=== PATIENT | female | born 1990 | race African-American/Black ===

== ENCOUNTER 2018-11-28 04:37 | Inpatient (IN) | payer BC ==
[2018-11-28] MEDS ORDERED: Sodium Chloride 0.9% 10 ML Syringe FLUSH PRN (06:49)
[2018-11-28] MEDS ORDERED: Nalbuphine 10 MG/1 ML Vial IVPUSH PRN (06:49)
[2018-11-28] MEDS ORDERED: Lidocaine 1% 50 ML MDV INJECT ONE (06:49)
[2018-11-28] MEDS ORDERED: Oxytocin/Lactated Ringers 10 UNIT/1,000 ML BAG IV SCH ×3 (07:00→16:01)
--- NOTE | 2018-11-28 07:42 | PCM.LDHP ---
L&D History of Present Illness - General Date of Service: 11/28/18 Admit Problem/Dx: Patient Status Order with Admit Dx/Problem 11/28/18 04:50 Patient Status [ADT] Routine 11/28/18 06:50 Patient Status [ADT] Routine Admission Diagnosis/Problem Admission Diagnosis/Problem Source of Information: Patient, Significant Other History Limitations: Reports: Language Barrier (Patient speaks some Citizen Of [place]) - History of Present Illness Introduction:: Tricia Murray is a 28-year-old at 39 weeks 4 days (DAVINA 12/01/2018) by LMP consistent with 20 week ultrasound who presents for evaluation of contractions. She reports that she started to have contractions that started spontaneously at approximately 1 AM this morning. Over the next 3-4 hours a became closer and closer together and were happening about every 1-2 minutes and were much more painful. She reports that she had a gush of pink-colored fluid initially with her contractions. She reports that she has had a continued small amounts of leaking of fluid since arriving to labor and delivery for evaluation. She reports good movement. Timing/Duration: Reports: sudden onset (1 AM), getting worse Location, : Reports: Abdomen, Lower back, Pelvic Quality: Reports: Pressure, Throbbing Severity: Severe Improves with: Reports: None Worsens with: Reports: None Associated Symptoms: Reports: vaginal bleeding, vaginal fluid, mild amount. Denies: vaginal discharge Present Illness Comments:: Tricia Murray is a 28-year-old at 39 weeks 4 days (DAVINA 12/01/2018) by LMP consistent with 20 week ultrasound who presents in active labor. She has had routine care with Dr. Shannon since 12 weeks gestational age. She has not had any significant complications during this . She received TDaP vaccine during the . labs Blood type: O+ Antibody screen: Negative Rubella status: Immune Hepatitis B surface antigen: Negative RPR: Negative HIV: Negative Gonorrhea: Negative Chlamydia: Negative Hemoglobinopathy testing: Negative for hemoglobinopathies Anatomy scan: Normal anatomy anterior placenta One hour glucose tolerance test: 93 Second trimester hemoglobin: 10.5 on 09/03/2018 Platelets: 141 on 09/03/2018 GBS status: Negative This complicated by: * ancestry with negative hemoglobinopathy testing * Language barrier with limited Citizen [place] language skills and primary language is Twi * Mild anemia with hemoglobin of 10.5 on second trimester testing - Related Data Allergies/Adverse Reactions: Allergies Allergy/AdvReac Type Severity Reaction Status Date / Time No Known Allergies Allergy Verified 11/28/18 04:49 Past Medical History - Past Health History Medical/Surgical History: Denies Medical/Surgical History Social & Family History - Tobacco Use Smoking Status *Q: Never Smoker Tobacco Use Within Last Twelve Months: No - Tobacco Core Measures Tobacco Use/Smoking Within Last 30 Days: No Smokeless Tobacco Use in Last 30 Days: No - Alcohol Use Alcohol Use History: No - Recreational Drug Use Recreational Drug Use: No Drug Use in Last 12 Months: No - Living Situation & Occupation Living situation: Reports: , with Significant Other H&P Review of Systems - Review of Systems: Review Of Systems: See Below General: Denies: Fever, Chills, Malaise, Weakness, Fatigue HEENT: Denies: Post Nasal Drip, Sinus Congestion, Sore Throat, Visual Changes Pulmonary: Denies: Shortness of Breath, Wheezing, Pleuritic Chest Pain, Cough Cardiovascular: Denies: Chest Pain, Palpitations, Dyspnea on Exertion Gastrointestinal: Denies: Abdominal Pain, Constipation, Diarrhea, Nausea, Vomiting Genitourinary: Denies: Dysuria, Frequency, Burning, Pain, Urgency Musculoskeletal: Reports: Back Pain (and hip pain) Skin: Denies: Rash, Lesions Psychiatric: Denies: Depression, Anxiety Neurological: Denies: Headache Hematologic/Lymphatic: Reports: Anemia L&D Exam - Exam Exam: See Below - Vital Signs Vital Signs: Last Vital Signs Temp 36.7 C 11/28/18 05:10 Pulse 91 11/28/18 05:10 Resp 15 11/28/18 05:10 BP 115/86 11/28/18 05:10 Pulse Ox Weight: 62.596 kg - OB Specific Contraction Frequency (min): 2-4 Contraction Intensity: Strong Movement: Active Heart Tones: Present Heart Tones per Min: 120 (+15 x 15 accelerations, occasional early decelerations) Heart Rate (FHR) Variability: Moderate (6-25 bmp) Presentation: Vertex Estimated Weight: 6.5 pounds by Dipak's - Kumar Score Kumar Score Cervix Position: Midposition Kumar Score Consistency: Soft Kumar Score Effacement: >80% (100%) Kumar Score Dilation: 3-4 cm Kumar Score 's Station: -1 ,0 (-1) Kumar Score Total: 10 - Exam General: Alert, Oriented HEENT: Conjunctiva Clear, EOMI Neck: Supple, Trachea Midline Lungs: Clear to Auscultation, Normal Respiratory Effort Cardiovascular: Regular Rate, Regular Rhythm GI/Abdominal Exam: Soft, Non-Tender, No Distention. No: Guarding, Rigid, Rebound Genitourinary: Normal external exam Back Exam: Normal Inspection, Full Range of Motion Skin: Warm, Dry, Intact Psychiatric: Alert, Normal Affect, Normal Mood - Patient Data Lab Results Last 24 hrs: Laboratory Results - last 24 hr 11/28/18 11/28/18 Range/Units 05:09 07:00 WBC 8.99 (3.98-10.04) K/mm3 RBC 5.10 (3.98-5.22) M/mm3 Hgb 14.4 (11.2-15.7) gm/L Hct 42.1 (34.1-44.9) % MCV 82.5 (79.4-94.8) fl MCH 28.2 (25.6-32.2) pg MCHC 34.2 (32.2-35.5) g/dl RDW Std Deviation 45.5 (36.4-46.3) fL Plt Count 162 L (182-369) K/mm3 MPV 11.2 (9.4-12.3) fl Neut % (Auto) 75.4 H (34.0-71.1) % Lymph % (Auto) 16.6 L (19.3-51.7) % [place] % (Auto) 7.5 (4.7-12.5) % Eos % (Auto) 0.1 L (0.7-5.8) Baso % (Auto) 0.1 (0.1-1.2) % Neut # (Auto) 6.78 H (1.56-6.13) K/mm3 Lymph # (Auto) 1.49 (1.18-3.74) K/mm3 [place] # (Auto) 0.67 H (0.24-0.36) K/mm3 Eos # (Auto) 0.01 L (0.04-0.36) K/mm3 Baso # (Auto) 0.01 (0.01-0.08) K/mm3 Membrane Rupture Negative Result Diagrams: 11/28/18 07:00 - Problem List (1) 39 weeks gestation of SNOMED Code(s): 54522559 ICD Code: Z3A.39 - 39 WEEKS GESTATION OF Status: Acute Current Visit: Yes (2) ancestry requiring population-specific genetic screening SNOMED Code(s): 35635169, 970220770, 651958821 ICD Code: Z13.79 - ENCNTR FOR OTH SCREENING FOR GENETIC AND CHROMSOML ANOMALIES Status: Acute Current Visit: Yes (3) Language barrier SNOMED Code(s): 042403702, 429500313 ICD Code: Z78.9 - OTHER SPECIFIED HEALTH STATUS Status: Acute Current Visit: Yes Problem List Initiated/Reviewed/Updated: Yes Orders Last 24hrs: Active Orders 24 hr Category Date Time Status Patient Status [ADT] Routine ADT 11/28/18 06:50 Active Activity as Tolerated [RC] PFP Care 11/28/18 06:50 Active Communication Order [RC] ASDIRECTED Care 11/28/18 06:50 Active Heart Tones [RC] ASDIRECTED Care 11/28/18 06:50 Active Non Stress Test [RC] PER UNIT ROUTINE Care 11/28/18 04:50 Active Non Stress Test [RC] PER UNIT ROUTINE Care 11/28/18 06:50 Active Notify Provider [RC] PFP Care 11/28/18 06:50 Active Notify Provider [RC] PRN Care 11/28/18 06:50 Active Peripheral IV Care [RC] . DIRECTED Care 11/28/18 06:50 Active Vital Signs [RC] PER UNIT ROUTINE Care 11/28/18 04:50 Active Vital Signs [RC] PER UNIT ROUTINE Care 11/28/18 06:50 Active Regular Diet [DIET] Diet 11/28/18 Breakfast Active RAPID PLASMA REAGIN,RPR [CHEM] Routine Lab 11/28/18 07:00 Received Lactated Ringers [Ringers, Lactated] 1,000 ml Med 11/28/18 07:00 Active IV ASDIRECTED Nalbuphine [Nubain] Med 11/28/18 06:49 Active 10 mg IVPUSH Q2H PRN Oxytocin/Lactated Ringers [Pitocin in LR 10 Units/1,000 Med 11/28/18 07:00 Active ML] 10 unit in 1,000 ml IV .CONTINUOUS Sodium Chloride 0.9% [Saline Flush] Med 11/28/18 06:49 Active 10 ml FLUSH ASDIRECTED PRN Electronic Heart Tones Ext w TOCO [WOMSER] Oth 11/28/18 06:50 Ordered Routine Electronic Heart Tones Internal [WOMSER] Per Unit Ot 11/28/18 06:50 Ordered Routine Peripheral IV Insertion Adult [OM.PC] Routine Ot 11/28/18 06:50 Ordered Resuscitation Status Routine Resus Stat 11/28/18 04:49 Ordered Medication Orders Lactated Ringer's (Ringers, Lactated) 1,000 mls @ 100 mls/hr IV ASDIRECTED GRETEL Oxytocin/Lactated Ringer's (Pitocin In Lr 10 Units/1,000 Ml) 10 unit in 1,000 mls @ 500 mls/hr IV .CONTINUOUS GRETEL; Protocol Nalbuphine HCl (Nubain) 10 mg IVPUSH Q2H PRN PRN Reason: Pain Sodium Chloride (Saline Flush) 10 ml FLUSH ASDIRECTED PRN PRN Reason: Keep Vein Open Assessment/Plan Comment:: Refer to observation for spontaneous labor with cervical change Continuous monitoring Place IV and have Lactated Ringer's at 125 ml/hr May have small amounts of regular diet Activity as tolerated May have epidural as desired Plans to breast-feed after delivery Anticipate vaginal delivery unless otherwise indicated Larry Panda M.D. 7:52 AM 11/28/2018
[2018-11-28] MEDS ORDERED: Lidocaine 1% 50 ML MDV ONE (10:20)
[2018-11-28] MEDS: Lactated Ringers 1,000 ML IV SCH ×2 (10:33→12:26)
--- NOTE | 2018-11-28 15:52 | PCM.DEL ---
L & D Note - General Info Date of Service: 11/28/18 Mother's Due Date: 12/01/18 - Delivery Note Labor: Spontaneous, Augmented by Oxytocin Delivery Outcome: Livebirth Infant Delivery Method: Spontaneous Vaginal Delivery-Single Presentation: Right Occiput Anterior (KERRY) Nuchal Cord: Present (not reduced prior to delivery) Prep: Povidone-Iodine (Betadine Anesthesia Type: Local Anesthetic: Lidocaine (Xylocaine) 1% Plain Local Anesthetic Volume: Other (10 mL) Amniotic Fluid Description: Meconium Stained Episiotomy Type: None Laceration: 2nd Degree, Perineal (left) Suture type: Vicryl Suture size: 3-0 Placenta: Intact, Spontaneous Cord: 3 Vessels Estimated Blood Loss: 350 Resuscitation Needed: Yes : Suctioned, Bulb Syringe, Cathether, Stimulated, Warmed, [place] Used, Warmer Used Provider: Larry Panda Score 1 min: 5 Score 5 min: 8 Second Stage Interventions: Reports: Pushing Effectively, Pushing, Feet in Foot Rests, Pushing, Pulls Own Legs Back, Pushing, Squat Bar Pulling on Device Delivery Comments (Free Text/Narrative):: Stage I: Tricia Murray was admitted for spontaneous labor. On admission her cervix was dilated to 1 cm and changed to 3 cm over the course of an hour. She was GBS negative. She had artificial rupture membranes with return of moderate meconium fluid. She progressed to complete and pushing. She had spacing out of her contractions during pushing and was started on Pitocin for augmentation of labor. Stage II: On 11/28/2018 she had a normal vaginal delivery of a live male at 1458. Apgars of 5 & 8. Weight of 2980 g (6 lbs 9.1 oz). Length of 20.5 inches. There was a single nuchal cord that was not reduced prior to delivery. was delivered in KERRY position. The cord was doubly clamped and cut by myself. Infant was taken to the warmer for resuscitation after delivery. Stage III: She had a spontaneous delivery of an intact placenta in Steffany presentation. Three vessel cord. She was given pitocin and fundal massage. She had a second degree left perineal laceration that was repaired with 3-0 Vicryl. Mom and baby were stable to recovery. EBL of 350 mL. Larry Panda MD 3:47 PM 11/28/2018 - General Info Date of Service: 11/28/18 - Patient Data Vitals - Most Recent: Last Vital Signs Temp 36.7 C 11/28/18 05:10 Pulse 91 11/28/18 05:10 Resp 15 11/28/18 05:10 BP 115/86 11/28/18 05:10 Pulse Ox Weight - Most Recent: 62.596 kg Lab Results Last 24 Hours: Laboratory Results - last 24 hr 11/28/18 11/28/18 Range/Units 05:09 07:00 WBC 8.99 (3.98-10.04) K/mm3 RBC 5.10 (3.98-5.22) M/mm3 Hgb 14.4 (11.2-15.7) gm/L Hct 42.1 (34.1-44.9) % MCV 82.5 (79.4-94.8) fl MCH 28.2 (25.6-32.2) pg MCHC 34.2 (32.2-35.5) g/dl RDW Std Deviation 45.5 (36.4-46.3) fL Plt Count 162 L (182-369) K/mm3 MPV 11.2 (9.4-12.3) fl Neut % (Auto) 75.4 H (34.0-71.1) % Lymph % (Auto) 16.6 L (19.3-51.7) % [place] % (Auto) 7.5 (4.7-12.5) % Eos % (Auto) 0.1 L (0.7-5.8) Baso % (Auto) 0.1 (0.1-1.2) % Neut # (Auto) 6.78 H (1.56-6.13) K/mm3 Lymph # (Auto) 1.49 (1.18-3.74) K/mm3 [place] # (Auto) 0.67 H (0.24-0.36) K/mm3 Eos # (Auto) 0.01 L (0.04-0.36) K/mm3 Baso # (Auto) 0.01 (0.01-0.08) K/mm3 Membrane Rupture Negative Med Orders - Current: Current Medications Lactated Ringer's (Ringers, Lactated) 1,000 mls @ 100 mls/hr IV ASDIRECTED GRETEL Last Admin: 11/28/18 12:26 Dose: 100 mls/hr Oxytocin/Lactated Ringer's (Pitocin In Lr 10 Units/1,000 Ml) 10 unit in 1,000 mls @ 500 mls/hr IV .CONTINUOUS GRETEL; Protocol Oxytocin/Lactated Ringer's (Pitocin In Lr 10 Units/1,000 Ml) 10 unit in 1,000 mls @ 12 mls/hr IV TITRATE GRETEL; Protocol Last Titration: 11/28/18 14:26 Dose: 4 munits/min, 24 mls/hr Nalbuphine HCl (Nubain) 10 mg IVPUSH Q2H PRN PRN Reason: Pain Sodium Chloride (Saline Flush) 10 ml FLUSH ASDIRECTED PRN PRN Reason: Keep Vein Open Discontinued Medications Lidocaine HCl (Xylocaine 1%) 50 ml INJECT ONETIME ONE Stop: 11/28/18 06:50 Last Admin: 11/28/18 15:19 Dose: 50 ml Lidocaine HCl (Xylocaine 1%) Confirm Administered Dose 50 ml .ROUTE .STK-MED ONE Stop: 11/28/18 10:21 - Problem List & Annotations (1) 39 weeks gestation of SNOMED Code(s): 27771348 Code(s): Z3A.39 - 39 WEEKS GESTATION OF Status: Acute Current Visit: Yes (2) ancestry requiring population-specific genetic screening SNOMED Code(s): 83026217, 496826692, 898758181 Code(s): Z13.79 - ENCNTR FOR OTH SCREENING FOR GENETIC AND CHROMSOML ANOMALIES Status: Acute Current Visit: Yes (3) Language barrier SNOMED Code(s): 157637723, 012542222 Code(s): Z78.9 - OTHER SPECIFIED HEALTH STATUS Status: Acute Current Visit: Yes (4) Thick meconium stained amniotic fluid SNOMED Code(s): 554144959 Code(s): P96.83 - MECONIUM STAINING Status: Acute Current Visit: Yes (5) Meconium stained amniotic fluid, delivered, current hospitalization SNOMED Code(s): 918439317, 169907891 Code(s): O77.0 - LABOR AND DELIVERY COMPLICATED BY MECONIUM IN AMNIOTIC FLUID Status: Acute Current Visit: Yes (6) Vaginal delivery SNOMED Code(s): 685422070 Code(s): O80 - ENCOUNTER FOR FULL-TERM UNCOMPLICATED DELIVERY Status: Acute Current Visit: Yes (7) Second degree perineal laceration during delivery SNOMED Code(s): 5032096 Code(s): O70.1 - SECOND DEGREE PERINEAL LACERATION DURING DELIVERY Status: Acute Current Visit: Yes - Problem List Review Problem List Initiated/Reviewed/Updated: Yes - My Orders Last 24 Hours: My Active Orders 11/28/18 04:49 Resuscitation Status Routine 11/28/18 04:50 Non Stress Test [RC] PER UNIT ROUTINE Vital Signs [RC] PER UNIT ROUTINE 11/28/18 06:49 Nalbuphine [Nubain] 10 mg IVPUSH Q2H PRN Sodium Chloride 0.9% [Saline Flush] 10 ml FLUSH ASDIRECTED PRN 11/28/18 06:50 Patient Status [ADT] Routine Activity as Tolerated [RC] PFP Communication Order [RC] ASDIRECTED Heart Tones [RC] ASDIRECTED Non Stress Test [RC] PER UNIT ROUTINE Notify Provider [RC] PFP Notify Provider [RC] PRN Peripheral IV Care [RC] . DIRECTED Vital Signs [RC] PER UNIT ROUTINE Electronic Heart Tones Ext w TOCO [WOMSER] Routine Electronic Heart Tones Internal [WOMSER] Per Unit Routine Peripheral IV Insertion Adult [OM.PC] Routine 11/28/18 07:00 RAPID PLASMA REAGIN,RPR [CHEM] Routine Lactated Ringers [Ringers, Lactated] 1,000 ml IV ASDIRECTED Oxytocin/Lactated Ringers [Pitocin in LR 10 Units/1,000 ML] 10 unit in 1,000 ml IV .CONTINUOUS 11/28/18 13:30 Oxytocin/Lactated Ringers [Pitocin in LR 10 Units/1,000 ML] 10 unit in 1,000 ml IV TITRATE 11/28/18 15:39 Patient Status Manage Transfer [TRANSFER] Routine 11/28/18 Breakfast Regular Diet [DIET] - Plan Plan:: Admit to inpatient following normal spontaneous vaginal delivery Continue Pitocin per unit protocol following delivery of placenta and lactated Ringer's until tolerating regular diet Regular diet Vitals per unit routine Ibuprofen and Tylenol for pain control Assist with breast-feeding as needed Continue to monitor lochia Anticipate discharge home on day #1 or #2 depending on status Larry Panda MD 3:47 PM 11/28/2018
[2018-11-28] MEDS ORDERED: Lanolin 100% Cream 7 GM Tube TOP PRN (16:01)
[2018-11-28] MEDS ORDERED: Benzocaine/Menthol 20%-0.5% Spray 56 GM Canister TOP PRN (16:01)
[2018-11-28] MEDS ORDERED: Witch Hazel Medicated Pads 40/Jar TOP PRN (16:01)
[2018-11-28] MEDS ORDERED: Acetaminophen 325 MG Tab PO PRN (16:01)
[2018-11-28] MEDS ORDERED: Hydrocortisone Acetate 25 MG Supp RECTAL PRN (16:01)
[2018-11-28] MEDS ORDERED: Docusate Sodium 100 MG Cap PO PRN (16:01)
[2018-11-28] MEDS: Ibuprofen 600 MG Tab PO PRN (20:27)
[2018-11-29] MEDS: Ibuprofen 600 MG Tab PO PRN ×2 (08:49→22:22)
[2018-11-29] MEDS: Prenatal Multivitamin with Calcium/Folic Acid/Iron Tab PO SCH (08:49)
--- NOTE | 2018-11-29 10:09 | PCM.SN ---
- Free Text/Narrative Note: Post Progress Note PPD # 1 Subjective: Doing well overall. Ambulating without difficulty. Lochia minimal and reports that she has had a change a pad 3 times since delivery. Voiding without difficulty. Tolerating regular diet without nausea or vomiting. Pain controlled with oral medications. Reports that she is having some perineal and abdominal pain. Reports that the oral medications are helping for this. Pumping breastmilk with bottle supplementation for feeding infant with minimal difficulty. Objective: Vitals: Vital Signs - 24 hr 11/28/18 11/29/18 11/29/18 20:21 02:54 07:31 Temperature 36.8 C 37.0 C 37.4 C Pulse, 85 71 78 Peripheral Respiratory 17 16 14 Rate Blood Pressure 101/63 94/56 L 103/65 O2 Sat by Pulse 99 100 99 Oximetry Physical Exam General: Alert and oriented, no acute distress Lungs: Clear to auscultation bilaterally Heart: Regular rate and rhythm Abdomen: Soft, minimal appropriate tenderness, non-distended, fundus midline, nontender, and at the umbilicus Extremities: Trace edema in bilateral lower extremities to mid shins ASSESSMENT: 28-year-old female s/p normal vaginal delivery with thick meconium- stained fluid PPD #1, complicated by ancestry with negative hemoglobinopathy testing, limited barrier and mild anemia PLAN: Doing well Pumping breast milk with bottle supplementation with minimal difficulty. Assist as needed Lochia minimal. Continue to monitor for appropriate lochia. Continue routine care Anticipate discharge home tomorrow Larry Panda MD 10:08 AM 11/29/2018
[2018-11-30] MEDS ORDERED: Magnesium Hydroxide 400 MG/5 ML Susp 30 ML Cup PO ONE (09:15)
--- NOTE | 2018-11-30 09:17 | PCM.SN ---
- Free Text/Narrative Note: Post Progress Note PPD # 2 Subjective: Doing well overall. Ambulating without difficulty. Lochia decreasing since yesterday and is minimal at this time. Voiding without difficulty. Tolerating regular diet without nausea or vomiting. Reports that she does not have much of an appetite at this time. Pain controlled with oral medications. Reports that the oral medications are helping for this. Pumping breastmilk with bottle supplementation for feeding infant with minimal difficulty. Objective: Vitals: Vital Signs - 24 hr 11/29/18 11/29/18 11/30/18 16:47 20:08 02:40 Temperature 36.9 C 36.8 C Pulse, 88 80 76 Peripheral Respiratory 16 16 16 Rate Blood Pressure 102/70 101/75 109/73 O2 Sat by Pulse 99 100 99 Oximetry 11/30/18 07:56 Temperature 36.9 C Pulse, Peripheral Respiratory 14 Rate Blood Pressure 127/66 O2 Sat by Pulse Oximetry Physical Exam General: Alert and oriented, no acute distress Lungs: Clear to auscultation bilaterally Heart: Regular rate and rhythm Abdomen: Soft, minimal appropriate tenderness, non-distended, fundus midline, nontender, and at the umbilicus Extremities: No edema ASSESSMENT: 28-year-old female s/p normal vaginal delivery with thick meconium- stained fluid PPD #2, complicated by ancestry with negative hemoglobinopathy testing, limited barrier and mild anemia PLAN: Doing well Pumping breast milk with bottle supplementation with minimal difficulty. Assist as needed Lochia minimal. Continue to monitor for appropriate lochia. Continue routine care Discharge home today Larry Panda MD 9:08 AM 11/30/2018
--- NOTE | 2018-11-30 09:22 | PCM.DCSUM1 ---
Discharge Summary - Hospital Course Free Text/Narrative:: Date of Service: 11/28/18 Mother's Due Date: 12/01/18 - Delivery Note Labor: Spontaneous, Augmented by Oxytocin Delivery Outcome: Livebirth Infant Delivery Method: Spontaneous Vaginal Delivery-Single Presentation: Right Occiput Anterior (KERRY) Nuchal Cord: Present (not reduced prior to delivery) Prep: Povidone-Iodine (Betadine Anesthesia Type: Local Anesthetic: Lidocaine (Xylocaine) 1% Plain Local Anesthetic Volume: Other (10 mL) Amniotic Fluid Description: Meconium Stained Episiotomy Type: None Laceration: 2nd Degree, Perineal (left) Suture type: Vicryl Suture size: 3-0 Placenta: Intact, Spontaneous Cord: 3 Vessels Estimated Blood Loss: 350 Resuscitation Needed: Yes [place]: Suctioned, Bulb Syringe, Cathether, Stimulated, Warmed, [place] Used, Warmer Used Provider: Larry Panda Score 1 min: 5 Score 5 min: 8 Second Stage Interventions: Reports: Pushing Effectively, Pushing, Feet in Foot Rests, Pushing, Pulls Own Legs Back, Pushing, Squat Bar Pulling on Device Delivery Comments (Free Text/Narrative):: Stage I: Tricia Murray was admitted for spontaneous labor. On admission her cervix was dilated to 1 cm and changed to 3 cm over the course of an hour. She was GBS negative. She had artificial rupture membranes with return of moderate meconium fluid. She progressed to complete and pushing. She had spacing out of her contractions during pushing and was started on Pitocin for augmentation of labor. Stage II: On 11/28/2018 she had a normal vaginal delivery of a live male infant at 1458. Apgars of 5 & 8. Weight of 2980 g (6 lbs 9.1 oz). Length of 20.5 inches. There was a single nuchal cord that was not reduced prior to delivery. Infant was delivered in KERRY position. The cord was doubly clamped and cut by myself. was taken to the warmer for resuscitation after delivery. Stage III: She had a spontaneous delivery of an intact placenta in [place] presentation. Three vessel cord. She was given pitocin and fundal massage. She had a second degree left perineal laceration that was repaired with 3-0 Vicryl. Mom and baby were stable to recovery. EBL of 350 mL. HPI Initial Comments: Date of Service: 11/28/18 Mother's Due Date: 12/01/18 - Delivery Note Labor: Spontaneous, Augmented by Oxytocin Delivery Outcome: Livebirth Delivery Method: Spontaneous Vaginal Delivery-Single Presentation: Right Occiput Anterior (KERRY) Nuchal Cord: Present (not reduced prior to delivery) Prep: Povidone-Iodine (Betadine Anesthesia Type: Local Anesthetic: Lidocaine (Xylocaine) 1% Plain Local Anesthetic Volume: Other (10 mL) Amniotic Fluid Description: Meconium Stained Episiotomy Type: None Laceration: 2nd Degree, Perineal (left) Suture type: Vicryl Suture size: 3-0 Placenta: Intact, Spontaneous Cord: 3 Vessels Estimated Blood Loss: 350 Resuscitation Needed: Yes : Suctioned, Bulb Syringe, Cathether, Stimulated, Warmed, [place] Used, Warmer Used Provider: Larry Panda Score 1 min: 5 Score 5 min: 8 Second Stage Interventions: Reports: Pushing Effectively, Pushing, Feet in Foot Rests, Pushing, Pulls Own Legs Back, Pushing, Squat Bar Pulling on Device Delivery Comments (Free Text/Narrative):: Stage I: Tricia Murray was admitted for spontaneous labor. On admission her cervix was dilated to 1 cm and changed to 3 cm over the course of an hour. She was GBS negative. She had artificial rupture membranes with return of moderate meconium fluid. She progressed to complete and pushing. She had spacing out of her contractions during pushing and was started on Pitocin for augmentation of labor. Stage II: On 11/28/2018 she had a normal vaginal delivery of a live male infant at 1458. Apgars of 5 & 8. Weight of 2980 g (6 lbs 9.1 oz). Length of 20.5 inches. There was a single nuchal cord that was not reduced prior to delivery. was delivered in KERRY position. The cord was doubly clamped and cut by myself. Infant was taken to the warmer for resuscitation after delivery. Stage III: She had a spontaneous delivery of an intact placenta in Ste[place] presentation. Three vessel cord. She was given pitocin and fundal massage. She had a second degree left perineal laceration that was repaired with 3-0 Vicryl. Mom and baby were stable to recovery. EBL of 350 mL. Brief History: Date of Service: 11/28/18. Mother's Due Date: 12/01/18. - Delivery Note. Labor: Spontaneous, Augmented by Oxytocin. Delivery Outcome: Livebirth. Infant Delivery Method: Spontaneous Vaginal Delivery-Single. Presentation: Right Occiput Anterior (KERRY). Nuchal Cord: Present (not reduced prior to delivery). Prep: Povidone-Iodine (Betadine. Anesthesia Type: Local. Anesthetic: Lidocaine (Xylocaine) 1% Plain. Local Anesthetic Volume: Other (10 mL). Amniotic Fluid Description: Meconium Stained. Episiotomy Type: None. Laceration: 2nd Degree, Perineal (left). Suture type: Vicryl. Suture size: 3- 0. Placenta: Intact, Spontaneous. Cord: 3 Vessels. Estimated Blood Loss: 350. Resuscitation Needed: Yes. [place]: Suctioned, Bulb Syringe, Cathether, Stimulated, Warmed, [place] Used, Warmer Used. Provider: Larry Panda. Score 1 min: 5. Score 5 min: 8. Second Stage Interventions : Reports: Pushing Effectively, Pushing, Feet in Foot Rests, Pushing, Pulls Own Legs Back, Pushing, Squat Bar Pulling on Device. Delivery Comments (Free Text/ Narrative):: Stage I: Tricia Murray was admitted for spontaneous labor. On admission her cervix was dilated to 1 cm and changed to 3 cm over the course of an hour. She was GBS negative. She had artificial rupture membranes with return of moderate meconium fluid. She progressed to complete and pushing. She had spacing out of her contractions during pushing and was started on Pitocin for augmentation of labor. Stage II: On 11/28/2018 she had a normal vaginal delivery of a live male infant at 1458. Apgars of 5 & 8. Weight of 2980 g (6 lbs 9.1 oz). Length of 20.5 inches. There was a single nuchal cord that was not reduced prior to delivery. Infant was delivered in KERRY position. The cord was doubly clamped and cut by myself. was taken to the warmer for resuscitation after delivery. Stage III: She had a spontaneous delivery of an intact placenta in Steffany presentation. Three vessel cord. She was given pitocin and fundal massage. She had a second degree left perineal laceration that was repaired with 3-0 Vicryl. Mom and baby were stable to recovery. EBL of 350 mL. Diagnosis: Stroke: No - Discharge Data Discharge Date: 11/30/18 Discharge Disposition: Home, Self-Care 01 Condition: Good - Discharge Diagnosis/Problem(s) (1) 39 weeks gestation of SNOMED Code(s): 01810855 ICD Code: Z3A.39 - 39 WEEKS GESTATION OF Status: Acute Current Visit: Yes (2) ancestry requiring population-specific genetic screening SNOMED Code(s): 93673948, 872416722, 429883280 ICD Code: Z13.79 - ENCNTR FOR OTH SCREENING FOR GENETIC AND CHROMSOML ANOMALIES Status: Acute Current Visit: Yes (3) Language barrier SNOMED Code(s): 300931988, 756706533 ICD Code: Z78.9 - OTHER SPECIFIED HEALTH STATUS Status: Acute Current Visit: Yes (4) Thick meconium stained amniotic fluid SNOMED Code(s): 756702479 ICD Code: P96.83 - MECONIUM STAINING Status: Acute Current Visit: Yes (5) Meconium stained amniotic fluid, delivered, current hospitalization SNOMED Code(s): 621274237, 525038471 ICD Code: O77.0 - LABOR AND DELIVERY COMPLICATED BY MECONIUM IN AMNIOTIC FLUID Status: Acute Current Visit: Yes (6) Vaginal delivery SNOMED Code(s): 919824369 ICD Code: O80 - ENCOUNTER FOR FULL-TERM UNCOMPLICATED DELIVERY Status: Acute Current Visit: Yes (7) Second degree perineal laceration during delivery SNOMED Code(s): 1158487 ICD Code: O70.1 - SECOND DEGREE PERINEAL LACERATION DURING DELIVERY Status : Acute Current Visit: Yes - Patient Summary/Data Complications: None Consults: None Hospital Course: Tricia Murray was admitted for spontaneous labor. On admission her cervix was dilated to 1 cm and she changed to 3-4 cm over the course of an hour. She was GBS negative. She had artificial rupture of membranes with meconium-stained fluid. She progressed to complete and began pushing. She was given pitocin for augmentation of contractions with spacing out of her contractions during pushing. On 11/28/2018 she had a normal vaginal delivery of a live male at 1458. Apgars of 5 and 8. Weight of 2980 g (6 pounds 9.1 ounces). Her course was uneventful. Her pain was well controlled and she had minimal lochia. She was ambulating, tolerating a regular diet and voiding normally. She was pumping breast milk with bottle supplementation with minimal difficulty. She was afebrile and her hematocrit was 42.1 on admission. She desired to be discharged home on the morning of PPD #2. Her blood type is O+. - Patient Instructions Diet: Regular Diet as Tolerated Activity: Apply Ice, As Tolerated Activity, Other: Nothing in the vagina for 6 weeks Driving: May Drive Today Showering/Bathing: May Shower Notify Provider of: Fever, Increased Pain, Swelling and Redness, Drainage, Nausea and/or Vomiting Other/Special Instructions: Please contact your physician's office if you have heavy vaginal bleeding enough to soak a pad in less than an hour for several hours. Monitor for any signs of an infection in the breasts with severe pain or redness of the breast. Continue use of Colace 100 mg twice daily for constipation or milk of magnesia 30 mL once daily if having severe constipation. - Discharge Plan *PRESCRIPTION DRUG MONITORING PROGRAM REVIEWED*: Not Applicable *COPY OF PRESCRIPTION DRUG MONITORING REPORT IN PATIENT JOVITA: Not Applicable Home Medications: Home Meds Acetaminophen [Tylenol] 650 mg PO Q6H PRN tablet 11/30/18 [Rx] Benzocaine/Menthol [Dermoplast Pain Relief [place]] 1 spray TOP ASDIRECTED PRN canister 11/30/18 [Rx] Docusate Sodium [Colace] 100 mg PO BID PRN cap 11/30/18 [Rx] Hydrocortisone Acetate [Anucort-HC] 25 mg RECTAL BID PRN supp 11/30/18 [Rx] Ibuprofen [Motrin] 600 mg PO Q6H PRN tablet 11/30/18 [Rx] Lanolin [Lansinoh HPA] 1 applic TOP ASDIRECTED PRN tube 11/30/18 [Rx] Vit with Ca/FA/Iron [ Plus Iron] 1 each PO DAILY tablet [Rx] Oziel Chicas [Tucks] 1 pad TOP ASDIRECTED PRN pad 11/30/18 [Rx] Patient Handouts: Vaginal Delivery, Care After, Care of a Perineal Tear Referrals: Yina Shannon MD [Physician] - (Follow-up in 6 weeks or earlier as needed for routine visit.) - Discharge Summary/Plan Comment DC Time >30 min.: No - Patient Data Vitals - Most Recent: Last Vital Signs Temp 36.9 C 11/30/18 07:56 Pulse 76 11/30/18 02:40 Resp 14 11/30/18 07:56 BP 127/66 11/30/18 07:56 Pulse Ox 99 11/30/18 02:40 Weight - Most Recent: 62.596 kg I&O - Last 24 hours: Intake & Output 11/29/18 11/30/18 11/30/18 22:59 06:59 14:59 Intake Total 280 Balance 280 Lab Results - Last 24 hrs: Laboratory Results - last 24 hr 11/28/18 Range/Units 07:00 RPR Non-reactive (NONREACTIVE) Med Orders - Current: Current Medications Acetaminophen (Tylenol) 650 mg PO Q6H PRN PRN Reason: mild pain or fever Benzocaine/Menthol (Dermoplast Pain Relief [place]) 0 gm TOP ASDIRECTED PRN PRN Reason: Perineal Comfort Measure Last Admin: 11/28/18 16:57 Dose: 1 applic Docusate Sodium (Colace) 100 mg PO BID PRN PRN Reason: Constipation Last Admin: 11/29/18 22:23 Dose: 100 mg Emollient Ointment (Lansinoh Hpa) 0 gm TOP ASDIRECTED PRN PRN Reason: Sore Nipples Hydrocortisone Acetate (Anucort-Hc) 25 mg RECTAL BID PRN PRN Reason: Hemorrhoid pain Oxytocin/Lactated Ringer's (Pitocin In Lr 10 Units/1,000 Ml) 10 unit in 1,000 mls @ 100 mls/hr IV TITRATE GRETEL; Protocol Ibuprofen (Motrin) 600 mg PO Q6H PRN PRN Reason: Mild pain or fever Last Admin: 11/29/18 22:22 Dose: 600 mg Prenat Multivit/[place]/Iron/Folic Ac ( Plus Iron) 1 each PO DAILY GRETEL Last Admin: 11/29/18 08:49 Dose: 1 each Witch Aviva (Tucks) 1 pad TOP ASDIRECTED PRN PRN Reason: Perineal Comfort Measure Last Admin: 11/28/18 16:57 Dose: 1 applic Discontinued Medications Lactated Ringer's (Ringers, Lactated) 1,000 mls @ 100 mls/hr IV ASDIRECTED GRETEL Last Admin: 11/28/18 12:26 Dose: 100 mls/hr Oxytocin/Lactated Ringer's (Pitocin In Lr 10 Units/1,000 Ml) 10 unit in 1,000 mls @ 500 mls/hr IV .CONTINUOUS GRETEL; Protocol Oxytocin/Lactated Ringer's (Pitocin In Lr 10 Units/1,000 Ml) 10 unit in 1,000 mls @ 12 mls/hr IV TITRATE GRETEL; Protocol Last Titration: 11/28/18 14:26 Dose: 4 munits/min, 24 mls/hr Lidocaine HCl (Xylocaine 1%) 50 ml INJECT ONETIME ONE Stop: 11/28/18 06:50 Last Admin: 11/28/18 15:19 Dose: 50 ml Lidocaine HCl (Xylocaine 1%) Confirm Administered Dose 50 ml .ROUTE .STK-MED ONE Stop: 11/28/18 10:21 Magnesium Hydroxide (Milk Of Magnesia) 30 ml PO ONETIME ONE Stop: 11/30/18 09:16 Nalbuphine HCl (Nubain) 10 mg IVPUSH Q2H PRN PRN Reason: Pain Sodium Chloride (Saline Flush) 10 ml FLUSH ASDIRECTED PRN PRN Reason: Keep Vein Open
[2018-11-30] MEDS: Prenatal Multivitamin with Calcium/Folic Acid/Iron Tab PO SCH (10:59)
== END 2018-11-30 10:15 | disposition home or self-care (01) | DRG 560 ==
LOC: JD.OBCHECK 04:37 → JD.OB 04:40 → JD.OBCHECK 06:50 → OBSVTOIN 14:58 → JD.OB 14:59
PROVIDERS: ADMIT Obstetrics & Gynecology; ATTEND Obstetrics & Gynecology
PROC: 10E0XZZ Delivery of Products of Conception, External Approach (ICD-10-PCS; principal; 2018-11-28)
PROC: 0KQM0ZZ Repair Perineum Muscle, Open Approach (ICD-10-PCS; 2018-11-28)
PROC: 10907ZC Drainage of Amniotic Fluid, Therapeutic from Products of Conception, Via Natural or Artificial Opening (ICD-10-PCS; 2018-11-28)
DX: O77.0 Labor and delivery complicated by meconium in amniotic fluid (principal); O76 Abnormality in fetal heart rate and rhythm complicating labor and delivery; O69.81X0 Labor and delivery complicated by cord around neck, without compression, not applicable or unspecified; O70.1 Second degree perineal laceration during delivery; Z3A.39 39 weeks gestation of pregnancy; Z37.0 Single live birth
CPT/HCPCS: 36415; 51701; 59025; 59409; 84112; 85025; 86592; A9270-GY; J2001; J2590; J7120

== ENCOUNTER 2020-09-09 01:37 | Inpatient (IN) | payer BC ==
[2020-09-09] MEDS ORDERED: Sodium Chloride 0.9% 10 ML Syringe FLUSH PRN (02:11)
[2020-09-09] MEDS ORDERED: Nalbuphine 10 MG/1 ML Vial IVPUSH PRN (02:11)
[2020-09-09] MEDS ORDERED: Lactated Ringers 1,000 ML IV SCH (02:15)
[2020-09-09] MEDS ORDERED: Oxytocin/Lactated Ringers 10 UNIT/1,000 ML BAG IV SCH (02:15)
--- NOTE | 2020-09-09 02:38 | PCM.LDHP ---
<Franco Aponte - Last Filed: 09/09/20 02:57> L&D History of Present Illness - General Date of Service: 09/09/20 Admit Problem/Dx: Patient Status Order with Admit Dx/Problem 09/09/20 01:44 Patient Status [ADT] Routine Admission Diagnosis/Problem Admission Diagnosis/Problem Source of Information: Patient, Family History Limitations: Reports: Language Barrier - History of Present Illness Introduction:: Tricia Murray is a GBS - O+ 30 year old x 1 female at 40-0 weeks gestation age (DAVINA 09/09/20) by early US and LMP who presents today for signs of labor. She reported contractions that started yesterday around 1200 and has been increasing in strength and frequency. She reported some bloody show but no vaginal bleeding otherwise. She denies any leaking of fluid. Present Illness Comments:: Tricia Murray is a GBS - O+ 30 year old x 1 female at 40-0 weeks gestation age (DAVINA 09/09/20) by 17 week US and LMP who presents today for signs of labor. Patient has received routine, although somewhat late, care with Dr. Shannon and denies any complications during her . She noted a positive test in December and established care with Dr. Shannon 03/30/20. She received the Tdap vaccine on 06/29/20; unknown flu vaccine administration. OBGYN History 11/28/18: of a Male infant weighing 6 lbs 9 ounces (2977 g) at 39-4 weeks [place] age G2: current labs: Blood type: O+ Antibody screen: Negative Rubella status: immune Hepatitis B surface antigen: unknown Hepatitis C: negative RPR: negative HIV: negative Gonorrhea: Negative Chlamydia: negative Anatomy US: 05/24/20 Normal growth, [place], placental position, anatomy One hour glucose tolerance test: 108 Second trimester hematocrit/hemoglobin: 11.6/34.9 Platelets: 165,000 GBS status: negative - Related Data Allergies/Adverse Reactions: Allergies Allergy/AdvReac Type Severity Reaction Status Date / Time No Known Allergies Allergy Verified 11/28/18 04:49 Home Medications: Home Meds Acetaminophen [Tylenol] 650 mg PO Q6H PRN tablet 11/30/18 [Rx] Benzocaine/Menthol [Dermoplast Pain Relief [place]] 1 spray TOP ASDIRECTED PRN canister 11/30/18 [Rx] Docusate Sodium [Colace] 100 mg PO BID PRN cap 11/30/18 [Rx] Hydrocortisone Acetate [Anucort-HC] 25 mg RECTAL BID PRN supp 11/30/18 [Rx] Ibuprofen [Motrin] 600 mg PO Q6H PRN tablet 11/30/18 [Rx] Lanolin [Lansinoh HPA] 1 applic TOP ASDIRECTED PRN tube 11/30/18 [Rx] Vit with Ca/FA/Iron [ Plus Iron] 1 each PO DAILY tablet 11/30/18 [Rx] georgie adaireL [Tucks] 1 pad TOP ASDIRECTED PRN pad 11/30/18 [Rx] Past Medical History - Past Health History Medical/Surgical History: Denies Medical/Surgical History Social & Family History - Family History Family Medical History: No Pertinent Family History - Living Situation & Occupation Living situation: Reports: , with Significant Other H&P Review of Systems - Review of Systems: Review Of Systems: See Below General: Reports: No Symptoms HEENT: Reports: No Symptoms Pulmonary: Reports: No Symptoms Cardiovascular: Reports: No Symptoms Gastrointestinal: Reports: No Symptoms Genitourinary: Reports: No Symptoms Musculoskeletal: Reports: No Symptoms Skin: Reports: No Symptoms Psychiatric: Reports: No Symptoms Neurological: Reports: No Symptoms L&D Exam - Exam Exam: See Below - Vital Signs Weight: 141 lb - OB Specific Contraction Intensity: Moderate to Strong Movement: Active Heart Tones: Present Heart Tones per Min: 140 - Kumar Score Kumar Score Effacement: >80% Kumar Score Dilation: > 5 cm Kumar Score 's Station: -1 ,0 - Exam General: Alert, Oriented HEENT: EOMI Lungs: Clear to Auscultation, Normal Respiratory Effort Cardiovascular: Regular Rate, Regular Rhythm GI/Abdominal Exam: Normal Bowel Sounds, Soft Extremities: Normal Inspection, No Pedal Edema, Normal Capillary Refill Skin: Warm, Dry, Intact Psychiatric: Alert, Normal Affect, Normal Mood - Patient Data Result Diagrams: 09/09/20 02:30 - Problem List (1) 40 weeks gestation of SNOMED Code(s): 44273593 ICD Code: Z3A.40 - 40 WEEKS GESTATION OF Status: Acute Current Visit: Yes (2) Language barrier SNOMED Code(s): 263770457, 702556216 ICD Code: Z78.9 - OTHER SPECIFIED HEALTH STATUS Status: Acute Current Visit: No Problem List Initiated/Reviewed/Updated: Yes Orders Last 24hrs: Active Orders 24 hr Category Date Time Status Patient Status [ADT] Routine ADT 09/09/20 01:44 Active Activity as Tolerated [RC] PFP Care 09/09/20 02:12 Active Antiembolic Devices [RC] .Routine Care 09/09/20 02:14 Active Communication Order [RC] ASDIRECTED Care 09/09/20 02:12 Active Heart Tones [RC] ASDIRECTED Care 09/09/20 02:14 Active Non Stress Test [RC] PER UNIT ROUTINE Care 09/09/20 01:44 Active Notify Provider [RC] PFP Care 09/09/20 02:12 Active Notify Provider [RC] PRN Care 09/09/20 02:12 Active Peripheral IV Care [RC] . DIRECTED Care 09/09/20 02:14 Active VTE/DVT Education [RC] PER UNIT ROUTINE Care 09/09/20 02:14 Active Vital Signs [RC] PER UNIT ROUTINE Care 09/09/20 01:44 Active Regular Diet [DIET] Diet 09/09/20 Breakfast Active CBC WITH AUTO DIFF [HEME] Stat Lab 09/09/20 02:30 Received CORONAVIRUS COVID-19 ANUEL [MOLEC] Stat Lab 09/09/20 02:00 Received RAPID PLASMA REAGIN,RPR [CHEM] Routine Lab 09/09/20 02:30 Received TYPE AND SCREEN [BBK] Stat Lab 09/09/20 02:30 Received Lactated Ringers [Ringers, Lactated] 1,000 ml Med 09/09/20 02:15 Active IV ASDIRECTED Nalbuphine [Nubain] Med 09/09/20 02:11 Active 10 mg IVPUSH Q2H PRN Oxytocin/Lactated Ringers [Pitocin in LR 10 Units/1,000 Med 09/09/20 02:15 Active ML] 10 unit in 1,000 ml IV .CONTINUOUS Sodium Chloride 0.9% [Saline Flush] Med 09/09/20 02:11 Active 10 ml FLUSH ASDIRECTED PRN DVT/VTE Prophylaxis Reflex [OM.PC] Routine Oth 09/09/20 02:13 Ordered Electronic Heart Tones Ext w TOCO [WOMSER] Oth 09/09/20 02:12 Ordered Routine Electronic Heart Tones Internal [WOMSER] Per Unit Oth 09/09/20 02:12 Ordered Routine Peripheral IV Insertion Adult [OM.PC] Routine Oth 09/09/20 02:12 Ordered Resuscitation Status Routine Resus Stat 09/09/20 01:44 Ordered Medication Orders Lactated Ringer's (Ringers, Lactated) 1,000 mls @ 100 mls/hr IV ASDIRECTED GRETEL Last Admin: 09/09/20 02:25 Dose: 100 mls/hr Documented by: [id number] Oxytocin/Lactated Ringer's (Pitocin In Lr 10 Units/1,000 Ml) 10 unit in 1,000 mls @ 500 mls/hr IV .CONTINUOUS GRETEL Nalbuphine HCl (Nalbuphine 10 Mg/1 Ml Vial) 10 mg IVPUSH Q2H PRN PRN Reason: Pain Sodium Chloride (Sodium Chloride 0.9% 10 Ml Syringe) 10 ml FLUSH ASDIRECTED PRN PRN Reason: Keep Vein Open Assessment/Plan Comment:: Tricia Murray is a GBS - O+ 30 year old x 1 female at 40-0 weeks gestation age (DAVINA 09/09/20) by early US and LMP who presents today for signs of labor. 1. Active labor - Augmentation of labor with AROM and Pitocin as indicated 2. GBS - 3. O+ with negative antibody screen 4. Rubella immune 5. Continuous monitoring 6. Activity as tolerated 7. Small amounts of regular diet 8. Pain management as patient desires 9. Plans to breastfeed 10. Anticipate vaginal delivery unless otherwise indicated 11. Hepatitis B ordered <Devang Rivera - Last Filed: 09/09/20 05:25> L&D History of Present Illness - General Admit Problem/Dx: Patient Status Order with Admit Dx/Problem 09/09/20 01:44 Patient Status [ADT] Routine 09/09/20 03:05 Admission Status [Patient Status] [ADT] Routine Admission Diagnosis/Problem Admission Diagnosis/Problem - Patient Data Lab Results Last 24 hrs: Laboratory Results - last 24 hr 09/09/20 09/09/20 09/09/20 Range/Units 02:00 02:30 02:30 WBC 7.17 (3.98-10.04) K/mm3 RBC 4.70 (3.98-5.22) M/mm3 Hgb 12.4 D (11.2-15.7) gm/dl Hct 38.2 (34.1-44.9) % MCV 81.3 (79.4-94.8) fl MCH 26.4 (25.6-32.2) pg MCHC 32.5 (32.2-35.5) g/dl RDW Std Deviation 40.0 (36.4-46.3) fL Plt Count 123 L (182-369) K/mm3 MPV 10.8 (9.4-12.3) fl Neut % (Auto) 67.2 (34.0-71.1) % Lymph % (Auto) 23.2 (19.3-51.7) % [place] % (Auto) 7.9 (4.7-12.5) % Eos % (Auto) 0.8 (0.7-5.8) Baso % (Auto) 0.3 (0.1-1.2) % Neut # (Auto) 4.82 (1.56-6.13) K/mm3 Lymph # (Auto) 1.66 (1.18-3.74) K/mm3 [place] # (Auto) 0.57 H (0.24-0.36) K/mm3 Eos # (Auto) 0.06 (0.04-0.36) K/mm3 Baso # (Auto) 0.02 (0.01-0.08) K/mm3 SARS-CoV-2 RNA (ANUEL) Negative (NEGATIVE) Blood Type O POSITIVE Gel Antibody Screen Negative Result Diagrams: 09/09/20 02:30 - Problem List (1) 40 weeks gestation of SNOMED Code(s): 54409542 ICD Code: Z3A.40 - 40 WEEKS GESTATION OF Status: Acute Current Visit: Yes Problem List Initiated/Reviewed/Updated: No Orders Last 24hrs: Active Orders 24 hr Category Date Time Status Admission Status [Patient Status] [ADT] Routine ADT 09/09/20 03:05 Active Activity as Tolerated [RC] PFP Care 09/09/20 02:12 Active Antiembolic Devices [RC] .Routine Care 09/09/20 02:14 Active Communication Order [RC] ASDIRECTED Care 09/09/20 02:12 Active Heart Tones [RC] ASDIRECTED Care 09/09/20 02:14 Active Non Stress Test [RC] PER UNIT ROUTINE Care 09/09/20 01:44 Active Notify Provider [RC] PFP Care 09/09/20 02:12 Active Notify Provider [RC] PRN Care 09/09/20 02:12 Active Peripheral IV Care [RC] . DIRECTED Care 09/09/20 02:14 Active VTE/DVT Education [RC] PER UNIT ROUTINE Care 09/09/20 02:14 Active Vital Signs [RC] PER UNIT ROUTINE Care 09/09/20 01:44 Active Regular Diet [DIET] Diet 09/09/20 Breakfast Active PATIENT RETYPE [BBK] Routine Lab 09/09/20 03:15 Ordered RAPID PLASMA REAGIN,RPR [CHEM] Routine Lab 09/09/20 02:30 Received Lactated Ringers [Ringers, Lactated] 1,000 ml Med 09/09/20 02:15 Active IV ASDIRECTED Nalbuphine [Nubain] Med 09/09/20 02:11 Active 10 mg IVPUSH Q2H PRN Oxytocin/Lactated Ringers [Pitocin in LR 10 Units/1,000 Med 09/09/20 02:15 Active ML] 10 unit in 1,000 ml IV .CONTINUOUS Sodium Chloride 0.9% [Saline Flush] Med 09/09/20 02:11 Active 10 ml FLUSH ASDIRECTED PRN DVT/VTE Prophylaxis Reflex [OM.PC] Routine Oth 09/09/20 02:13 Ordered Electronic Heart Tones Ext w TOCO [WOMSER] Oth 09/09/20 02:12 Ordered Routine Electronic Heart Tones Internal [WOMSER] Per Unit Oth 09/09/20 02:12 Ordered Routine Peripheral IV Insertion Adult [OM.PC] Routine Oth 09/09/20 02:12 Ordered Resuscitation Status Routine Resus Stat 09/09/20 01:44 Ordered Medication Orders Lactated Ringer's (Ringers, Lactated) 1,000 mls @ 100 mls/hr IV ASDIRECTED GRETEL Last Admin: 09/09/20 02:25 Dose: 100 mls/hr Documented by: MARICARMEN Oxytocin/Lactated Ringer's (Pitocin In Lr 10 Units/1,000 Ml) 10 unit in 1,000 mls @ 500 mls/hr IV .CONTINUOUS GRETEL Nalbuphine HCl (Nalbuphine 10 Mg/1 Ml Vial) 10 mg IVPUSH Q2H PRN PRN Reason: Pain Sodium Chloride (Sodium Chloride 0.9% 10 Ml Syringe) 10 ml FLUSH ASDIRECTED PRN PRN Reason: Keep Vein Open Assessment/Plan Comment:: Patient seen and examined by me and discussed with student
--- NOTE | 2020-09-09 05:35 | PCM.DEL ---
<Gracie Apontechanda - Last Filed: 09/09/20 05:36> L & D Note - General Info Date of Service: 09/09/20 Mother's Due Date: 09/09/20 - Delivery Note Labor: Spontaneous, Augmented by ARM, Augmented by Oxytocin Delivery Outcome: Livebirth Infant Delivery Method: Spontaneous Vaginal Delivery-Single Delivery Mode: Spontaneous Presentation: Right Occiput Anterior (KERRY) Nuchal Cord: Present, Reduced (Over the body) Anesthesia Type: None Amniotic Fluid Description: Meconium Stained Episiotomy Type: Midline Laceration: 1st Degree Placenta: Intact, Spontaneous Cord: 3 Vessels Estimated Blood Loss: 100 Resuscitation Needed: No : Bulb Syringe, Stimulated, Warmed Provider: Curt Cervantes Score 1 min: 8 Score 5 min: 8 Second Stage Interventions: Reports: Encouragement Given Delivery Comments (Free Text/Narrative):: Stage I: Patient is a GBS - O+ at 40-0 weeks gestational age who presented to L&D for signs of labor. She reported that contractions began yesterday at 1200. She denied any leaking of fluid; although she did report some bloody show. Cervical exam demonstrated 5/80%/soft/posterior/-1. AROM was perfo rmed with meconium staining. Mom and baby tolerated the procedure well. The patient progressed to complete with a cervical rim and pushing with augmentation of Pitocin. Stage II: of a live male infant weighing 3240 g (7 lbs 2.3 ounce) with Apgars of 8/8 in the KERRY. Single nuchal cord reduced over the body. Time of delivery was 0506. Cord was clamped and cut by the 's father. The infant was placed on the mothers abdomen and stimulated, warmed and dried. Stage III: The placenta was delivered at 0509. Inspection demonstrated an intact placenta with eccentric insertion. Three vessel cord. The vaginal mucosa was inspected and noted single hemodynamically stable 1st degree laceration in the midline. Pressure was applied. EBL 100 mL. Infant and mother stable to recovery. - General Info Date of Service: 09/09/20 - Patient Data Weight - Most Recent: 141 lb Lab Results Last 24 Hours: Laboratory Results - last 24 hr 09/09/20 09/09/20 09/09/20 Range/Units 02:00 02:30 02:30 WBC 7.17 (3.98-10.04) K/mm3 RBC 4.70 (3.98-5.22) M/mm3 Hgb 12.4 D (11.2-15.7) gm/dl Hct 38.2 (34.1-44.9) % MCV 81.3 (79.4-94.8) fl MCH 26.4 (25.6-32.2) pg MCHC 32.5 (32.2-35.5) g/dl RDW Std Deviation 40.0 (36.4-46.3) fL Plt Count 123 L (182-369) K/mm3 MPV 10.8 (9.4-12.3) fl Neut % (Auto) 67.2 (34.0-71.1) % Lymph % (Auto) 23.2 (19.3-51.7) % [place] % (Auto) 7.9 (4.7-12.5) % Eos % (Auto) 0.8 (0.7-5.8) Baso % (Auto) 0.3 (0.1-1.2) % Neut # (Auto) 4.82 (1.56-6.13) K/mm3 Lymph # (Auto) 1.66 (1.18-3.74) K/mm3 [place] # (Auto) 0.57 H (0.24-0.36) K/mm3 Eos # (Auto) 0.06 (0.04-0.36) K/mm3 Baso # (Auto) 0.02 (0.01-0.08) K/mm3 SARS-CoV-2 RNA (ANUEL) Negative (NEGATIVE) Blood Type O POSITIVE Gel Antibody Screen Negative Med Orders - Current: Current Medications Lactated Ringer's (Ringers, Lactated) 1,000 mls @ 100 mls/hr IV ASDIRECTED GRETEL Last Admin: 09/09/20 02:25 Dose: 100 mls/hr Documented by: Oxytocin/Lactated Ringer's (Pitocin In Lr 10 Units/1,000 Ml) 10 unit in 1,000 mls @ 500 mls/hr IV .CONTINUOUS GRETEL Nalbuphine HCl (Nalbuphine 10 Mg/1 Ml Vial) 10 mg IVPUSH Q2H PRN PRN Reason: Pain Sodium Chloride (Sodium Chloride 0.9% 10 Ml Syringe) 10 ml FLUSH ASDIRECTED PRN PRN Reason: Keep Vein Open - Problem List & Annotations (1) 40 weeks gestation of SNOMED Code(s): 95949173 Code(s): Z3A.40 - 40 WEEKS GESTATION OF Status: Acute Current Visit: Yes (2) Language barrier SNOMED Code(s): 244572983, 141335676 Code(s): Z78.9 - OTHER SPECIFIED HEALTH STATUS Status: Acute Current Visit: No (3) (normal spontaneous vaginal delivery) SNOMED Code(s): 74310141, 604602018 Code(s): O80 - ENCOUNTER FOR FULL-TERM UNCOMPLICATED DELIVERY Status: Acute Current Visit: Yes (4) Nuchal cord SNOMED Code(s): 501831353 Code(s): EFF6418 - Status: Acute Current Visit: Yes (5) First degree perineal laceration SNOMED Code(s): 58495689 Code(s): O70.0 - FIRST DEGREE PERINEAL LACERATION DURING DELIVERY Status: Acute Current Visit: Yes (6) Meconium staining SNOMED Code(s): 823122474 Code(s): P96.83 - MECONIUM STAINING Status: Acute Current Visit: Yes - Problem List Review Problem List Initiated/Reviewed/Updated: Yes - Assessment Assessment:: of a live male weighing 3240 g with APGARs of 8/8 to a GBS - O+ 30 year old G2 now P2002 x 1 female at 40-0 weeks gestation age (DAVINA 09/09/20) by early US and LMP who presented today for signs of labor. - Plan Plan:: 1. PPD#0 of a live male 2. GBS - 3. O+ with negative antibody screen 4. Rubella immune 5. Activity as tolerated 6. care per unit routine 7. Regular diet 9. Plans to breastfeed 10. Anticipate discharge in 24-48 hours pending acid loader's recommendation Diagnosis codes: Z3A. 40 O69.81XO O77.0 O70.0 <Devang Rivera - Last Filed: 09/09/20 05:43> Induction Criteria - Augmentation Estimated Pelvis: Reports: Adequate Weight Estimated:: Reports: AGA Reassuring Monitoring Strip: Yes Absence of Tachy Systole: Yes - General Info Functional Status: Reports: Pain Controlled - Review of Systems General: Reports: No Symptoms HEENT: Reports: No Symptoms Pulmonary: Reports: No Symptoms Cardiovascular: Reports: No Symptoms Gastrointestinal: Reports: No Symptoms Genitourinary: Reports: No Symptoms Musculoskeletal: Reports: No Symptoms Skin: Reports: No Symptoms Neurological: Reports: No Symptoms Psychiatric: Reports: No Symptoms - Patient Data Lab Results Last 24 Hours: Laboratory Results - last 24 hr 09/09/20 09/09/20 09/09/20 Range/Units 02:00 02:30 02:30 WBC 7.17 (3.98-10.04) K/mm3 RBC 4.70 (3.98-5.22) M/mm3 Hgb 12.4 D (11.2-15.7) gm/dl Hct 38.2 (34.1-44.9) % MCV 81.3 (79.4-94.8) fl MCH 26.4 (25.6-32.2) pg MCHC 32.5 (32.2-35.5) g/dl RDW Std Deviation 40.0 (36.4-46.3) fL Plt Count 123 L (182-369) K/mm3 MPV 10.8 (9.4-12.3) fl Neut % (Auto) 67.2 (34.0-71.1) % Lymph % (Auto) 23.2 (19.3-51.7) % [place] % (Auto) 7.9 (4.7-12.5) % Eos % (Auto) 0.8 (0.7-5.8) Baso % (Auto) 0.3 (0.1-1.2) % Neut # (Auto) 4.82 (1.56-6.13) K/mm3 Lymph # (Auto) 1.66 (1.18-3.74) K/mm3 [place] # (Auto) 0.57 H (0.24-0.36) K/mm3 Eos # (Auto) 0.06 (0.04-0.36) K/mm3 Baso # (Auto) 0.02 (0.01-0.08) K/mm3 SARS-CoV-2 RNA (ANUEL) Negative (NEGATIVE) Blood Type O POSITIVE Gel Antibody Screen Negative Med Orders - Current: Current Medications Acetaminophen (Acetaminophen 325 Mg Tab) 650 mg PO Q4H PRN PRN Reason: mild pain or fever Benzocaine/Menthol (Benzocaine/Menthol 20%-0.5% [place] 56 Gm Canister) 0 gm TOP ASDIRECTED PRN PRN Reason: Perineal Comfort Measure Docusate Sodium (Docusate Sodium 100 Mg Cap) 100 mg PO BID PRN PRN Reason: Constipation Ibuprofen (Ibuprofen 600 Mg Tab) 600 mg PO Q4H PRN PRN Reason: Mild pain or fever Witch Aviva (Witch Aviva Medicated Pads 40/Jar) 1 pad TOP ASDIRECTED PRN PRN Reason: Perineal Comfort Measure Discontinued Medications Lactated Ringer's (Ringers, Lactated) 1,000 mls @ 100 mls/hr IV ASDIRECTED GRETEL Last Admin: 09/09/20 02:25 Dose: 100 mls/hr Documented by: Oxytocin/Lactated Ringer's (Pitocin In Lr 10 Units/1,000 Ml) 10 unit in 1,000 mls @ 500 mls/hr IV .CONTINUOUS GRETEL Nalbuphine HCl (Nalbuphine 10 Mg/1 Ml Vial) 10 mg IVPUSH Q2H PRN PRN Reason: Pain Sodium Chloride (Sodium Chloride 0.9% 10 Ml Syringe) 10 ml FLUSH ASDIRECTED PRN PRN Reason: Keep Vein Open - Exam General: Alert, Oriented HEENT: Pupils Equal, Mucous Membr. Moist/[place] Neck: Supple Lungs: Clear to Auscultation, Normal Respiratory Effort Cardiovascular: Regular Rate, Regular Rhythm GI/Abdominal Exam: Normal Bowel Sounds, Soft, Non-Tender Extremities: Normal Inspection, Normal Range of Motion, Non-Tender, No Pedal Edema, Normal Capillary Refill Skin: Warm, Dry, Intact Psy/Mental Status: Alert, Normal Affect, Normal Mood - Problem List & Annotations (1) 40 weeks gestation of SNOMED Code(s): 54642373 Code(s): Z3A.40 - 40 WEEKS GESTATION OF Status: Acute Current Visit: Yes (2) First degree perineal laceration SNOMED Code(s): 53183232 Code(s): O70.0 - FIRST DEGREE PERINEAL LACERATION DURING DELIVERY Status: Acute Current Visit: Yes (3) Meconium staining SNOMED Code(s): 455922110 Code(s): P96.83 - MECONIUM STAINING Status: Acute Current Visit: Yes (4) (normal spontaneous vaginal delivery) SNOMED Code(s): 54346673, 362668771 Code(s): O80 - ENCOUNTER FOR FULL-TERM UNCOMPLICATED DELIVERY Status: Acute Current Visit: Yes (5) Nuchal cord SNOMED Code(s): 483508653 Code(s): UEC8268 - Status: Acute Current Visit: Yes (6) Language barrier SNOMED Code(s): 727903198, 602595942 Code(s): Z78.9 - OTHER SPECIFIED HEALTH STATUS Status: Acute Current V isit: No - Problem List Review Problem List Initiated/Reviewed/Updated: No - My Orders Last 24 Hours: My Active Orders 09/09/20 01:44 Resuscitation Status Routine 09/09/20 02:30 RAPID PLASMA REAGIN,RPR [CHEM] Routine 09/09/20 03:15 PATIENT RETYPE [BBK] Routine 09/09/20 05:37 Acetaminophen [TylenoL] 650 mg PO Q4H PRN Benzocaine/Menthol [Dermoplast Pain Relief [place]] See Dose Instructions TOP ASDIRECTED PRN Docusate Sodium [Colace] 100 mg PO BID PRN Ibuprofen [Motrin] 600 mg PO Q4H PRN witch Aviva [Tucks] 1 pad TOP ASDIRECTED PRN Heat Therapy [OM.PC] PRN 09/09/20 05:37 Activity as Tolerated [RC] PER UNIT ROUTINE Vital Signs [RC] ASDIRECTED Assess Lochia [WOMSER] Per Unit Routine Assess Uterine Involution [WOMSER] Per Unit Routine Breast Pump [WOMSER] Per Unit Routine Medication Administration Instruction [OM.PC] Routine Perineal Care [OM.PC] Per Unit Routine Sitz Bath [OM.PC] Per Unit Routine 09/09/20 Breakfast Regular Diet [DIET] 09/10/20 05:11 CBC WITH AUTO DIFF [HEME] AM 09/10/20 05:37 Heat Therapy [OM.PC] PRN - Plan Plan:: Patient seen and delivered by student as I assisted examined by me and discussed with student.
[2020-09-09] MEDS ORDERED: Acetaminophen 325 MG Tab PO PRN (05:37)
[2020-09-09] MEDS ORDERED: Docusate Sodium 100 MG Cap PO PRN (05:37)
[2020-09-09] MEDS ORDERED: Benzocaine/Menthol 20%-0.5% Spray 56 GM Canister TOP PRN (05:37)
[2020-09-09] MEDS: Witch Hazel Medicated Pads 40/Jar TOP PRN (07:25)
[2020-09-09] MEDS: Ibuprofen 600 MG Tab PO PRN ×2 (07:26→16:46)
[2020-09-10] MEDS: Ibuprofen 600 MG Tab PO PRN ×2 (02:14→12:20)
[2020-09-10] MEDS: Witch Hazel Medicated Pads 40/Jar TOP PRN (08:03)
--- NOTE | 2020-09-10 10:31 | PCM.DCSUM1 ---
Discharge Summary - Hospital Course Free Text/Narrative:: of a live male infant weighing 3240 g with APGARs of 8/8 on 09/09/20 to a GBS - O+ 30 year old G2 now P2002 x 1 female at 40-0 weeks gestation age (DAVINA 09/09/20) by early US and LMP who presented 09/09/20 for signs of labor. HPI Initial Comments: Today, mother is doing well. Reports that she has been up to use the bathroom and denies dysuria. Lochia is minimal. She has not yet had a bowel movement. She is struggling with breast feeding and has been supplementing with formula. She reports that she would like to continue to attempt to breast feed at home. Brief History: Tricia Murray is a GBS - O+ 30 year old x 1 female at 40-0 weeks gestation age (DAVINA 09/09/20) by 17 week US and LMP who presents today for signs of labor. Patient has received routine, although somewhat late, care with Dr. Shannon and denies any complications during her . She noted a positive test in December and established care with Dr. Shannon 03/30/20. She noted contractions the day prior and presented to L&D. She quickly progressed to complete and pushing. of a live male infant weighing 3240 g with APGARs of 8/8 occurred at 0506 on 09/09/20. Small hemodynamically stable unrepaired 1st degree laceration to the midline. and mother stable to recovery and doing well. - Discharge Data Discharge Date: 09/10/20 Discharge Disposition: Home, Self-Care 01 Condition: Good - Referral to Home Health Primary Care Physician: Yina Shannon MD - Discharge Diagnosis/Problem(s) (1) 40 weeks gestation of SNOMED Code(s): 38563119 ICD Code: Z3A.40 - 40 WEEKS GESTATION OF Status: Acute Current Visit: Yes (2) Language barrier SNOMED Code(s): 166026413, 551018647 ICD Code: Z78.9 - OTHER SPECIFIED HEALTH STATUS Status: Acute Current Visit: No (3) (normal spontaneous vaginal delivery) SNOMED Code(s): 80490434, 236398728 ICD Code: O80 - ENCOUNTER FOR FULL-TERM UNCOMPLICATED DELIVERY Status: Acute Current Visit: Yes (4) Nuchal cord SNOMED Code(s): 753313875 ICD Code: [id number] - Status: Acute Current Visit: Yes (5) First degree perineal laceration SNOMED Code(s): 83828340 ICD Code: O70.0 - FIRST DEGREE PERINEAL LACERATION DURING DELIVERY Status: Acute Current Visit: Yes (6) Meconium staining SNOMED Code(s): 986839037 ICD Code: P96.83 - MECONIUM STAINING Status: Acute Current Visit: Yes - Patient Summary/Data Recommended Follow-up Testing/Procedures: Dr. Shannon follow up in 2 weeks Hospital Course: unremarkable - Patient Instructions Diet: Regular Diet as Tolerated Activity: As Tolerated Driving: May Drive Today Showering/Bathing: May Shower Notify Provider of: Fever, Increased Pain (Vaginal bleeding more than a heavy period ), Nausea and/or Vomiting Other/Special Instructions: Nothing in the vaginal for 6 weeks, notify for bleeding more than a heavy period or more than 1 pad per hour - Discharge Plan *PRESCRIPTION DRUG MONITORING PROGRAM REVIEWED*: No *COPY OF PRESCRIPTION DRUG MONITORING REPORT IN PATIENT JOVITA: No Home Medications: Home Meds Acetaminophen [Tylenol] 650 mg PO Q6H PRN tablet 11/30/18 [Rx] Benzocaine/Menthol [Dermoplast Pain Relief [place]] 1 spray TOP ASDIRECTED PRN canister 11/30/18 [Rx] Docusate Sodium [Colace] 100 mg PO BID PRN cap 11/30/18 [Rx] Hydrocortisone Acetate [Anucort-HC] 25 mg RECTAL BID PRN supp 11/30/18 [Rx] Ibuprofen [Motrin] 600 mg PO Q6H PRN tablet 11/30/18 [Rx] Lanolin [Lansinoh HPA] 1 applic TOP ASDIRECTED PRN tube 11/30/18 [Rx] Vit with Ca/FA/Iron [ Plus Iron] 1 each PO DAILY tablet 11/30/18 [Rx] witch Brissa [Tucks] 1 pad TOP ASDIRECTED PRN pad 11/30/18 [Rx] - Discharge Summary/Plan Comment DC Time >30 min.: No - Patient Data Vitals - Most Recent: Last Vital Signs Temp 98.1 F 09/10/20 02:21 Pulse 71 09/10/20 02:21 Resp 16 09/10/20 02:21 BP 99/72 09/10/20 02:21 Pulse Ox 98 09/10/20 02:21 Weight - Most Recent: 141 lb Lab Results - Last 24 hrs: Laboratory Results - last 24 hr 09/10/20 Range/Units 05:49 WBC 9.66 (3.98-10.04) K/mm3 RBC 4.15 (3.98-5.22) M/mm3 Hgb 10.8 L D (11.2-15.7) gm/dl Hct 34.0 L (34.1-44.9) % MCV 81.9 (79.4-94.8) fl MCH 26.0 (25.6-32.2) pg MCHC 31.8 L (32.2-35.5) g/dl RDW Std Deviation 39.4 (36.4-46.3) fL Plt Count 147 L (182-369) K/mm3 MPV 11.3 (9.4-12.3) fl Neut % (Auto) 71.3 H (34.0-71.1) % Lymph % (Auto) 21.4 (19.3-51.7) % [place] % (Auto) 6.2 (4.7-12.5) % Eos % (Auto) 0.6 L (0.7-5.8) Baso % (Auto) 0.2 (0.1-1.2) % Neut # (Auto) 6.88 H (1.56-6.13) K/mm3 Lymph # (Auto) 2.07 (1.18-3.74) K/mm3 [place] # (Auto) 0.60 H (0.24-0.36) K/mm3 Eos # (Auto) 0.06 (0.04-0.36) K/mm3 Baso # (Auto) 0.02 (0.01-0.08) K/mm3 Med Orders - Current: Current Medications Acetaminophen (Acetaminophen 325 Mg Tab) 650 mg PO Q4H PRN PRN Reason: mild pain or fever Benzocaine/Menthol (Benzocaine/Menthol 20%-0.5% [place] 56 Gm Canister) 0 gm TOP ASDIRECTED PRN PRN Reason: Perineal Comfort Measure Last Admin: 09/09/20 07:25 Dose: 1 can Documented by: Docusate Sodium (Docusate Sodium 100 Mg Cap) 100 mg PO BID PRN PRN Reason: Constipation Ibuprofen (Ibuprofen 600 Mg Tab) 600 mg PO Q4H PRN PRN Reason: Mild pain or fever Last Admin: 09/10/20 02:14 Dose: 600 mg Documented by: Oziel Chicas (Oziel Chicas Medicated Pads 40/Jar) 1 pad TOP ASDIRECTED PRN PRN Reason: Perineal Comfort Measure Last Admin: 09/10/20 08:03 Dose: 1 tub Documented by: Discontinued Medications Lactated Ringer's (Ringers, Lactated) 1,000 mls @ 100 mls/hr IV ASDIRECTED GRETEL Last Admin: 09/09/20 02:25 Dose: 100 mls/hr Documented by: Oxytocin/Lactated Ringer's (Pitocin In Lr 10 Units/1,000 Ml) 10 unit in 1,000 mls @ 500 mls/hr IV .CONTINUOUS GRETEL Last Admin: 09/09/20 16:46 Dose: 500 mls/hr Documented by: Nalbuphine HCl (Nalbuphine 10 Mg/1 Ml Vial) 10 mg IVPUSH Q2H PRN PRN Reason: Pain Sodium Chloride (Sodium Chloride 0.9% 10 Ml Syringe) 10 ml FLUSH ASDIRECTED PRN PRN Reason: Keep Vein Open
== END 2020-09-10 13:13 | disposition home or self-care (01) | DRG 560 ==
LOC: JD.OBCHECK 01:37 → JD.OB 01:37 → JD.OBCHECK 02:44 → JD.OB 02:45 → OBSVTOIN 05:06 → JD.OB 05:07
PROVIDERS: ADMIT Obstetrics & Gynecology; ATTEND Obstetrics & Gynecology
PROC: 10E0XZZ Delivery of Products of Conception, External Approach (ICD-10-PCS; principal; 2020-09-09)
PROC: 10907ZC Drainage of Amniotic Fluid, Therapeutic from Products of Conception, Via Natural or Artificial Opening (ICD-10-PCS; 2020-09-09)
DX: O77.0 Labor and delivery complicated by meconium in amniotic fluid (principal); Z3A.40 40 weeks gestation of pregnancy; Z37.0 Single live birth; O70.0 First degree perineal laceration during delivery; Z20.822 Contact with and (suspected) exposure to COVID-19; O69.81X0 Labor and delivery complicated by cord around neck, without compression, not applicable or unspecified
CPT/HCPCS: 36415; 59025; 59409; 85025; 86592; 86850; 86900; 86901; A9270-GY; J2590; J7120; U0002

== ENCOUNTER 2022-07-14 11:57 | Inpatient (IN) | payer BC ==
[2022-07-14] MEDS ORDERED: Sodium Chloride 0.9% 10 ML Syringe FLUSH PRN (14:28)
[2022-07-14] MEDS ORDERED: Nalbuphine 10 MG/0.5 ML Syringe IVPUSH PRN (14:28)
[2022-07-14] MEDS ORDERED: Oxytocin/Lactated Ringers 10 UNIT/1,000 ML BAG IV SCH ×2 (14:28→14:45)
[2022-07-14] MEDS: Lactated Ringers 1,000 ML IV SCH ×4 (15:07→21:13)
[2022-07-14] MEDS ORDERED: Lidocaine 1% 50 ML MDV INJECT STA (19:25)
[2022-07-14] MEDS ORDERED: diphenhydrAMINE 50 MG/ML SDV IVPUSH PRN (19:58)
[2022-07-14] MEDS ORDERED: Bupivacaine/fentaNYL/NS 100 ML Bag EPIDUR PRN (19:58)
[2022-07-14] MEDS ORDERED: fentaNYL 100 MCG/2 ML SDV EPIDUR PRN (19:58)
[2022-07-14] MEDS ORDERED: ePHEDrine 50 MG/ML SDV IVPUSH PRN (19:58)
[2022-07-14] MEDS ORDERED: Sodium Chloride 0.9% 10 ML Syringe FLUSH SCH (21:00)
[2022-07-15] MEDS ORDERED: Magnesium Hydroxide 400 MG/5 ML Susp 30 ML Cup PO PRN (00:38)
[2022-07-15] MEDS ORDERED: Docusate Sodium 100 MG Cap PO PRN (00:38)
[2022-07-15] MEDS ORDERED: Benzocaine/Menthol 20%-0.5% Spray 78 GM Cannister TOP PRN (00:38)
[2022-07-15] MEDS ORDERED: Witch Hazel Medicated Pads 40/Jar TOP PRN (00:38)
[2022-07-15] MEDS ORDERED: Oxytocin/Lactated Ringers 10 UNIT/1,000 ML BAG IV SCH (00:38)
[2022-07-15] MEDS ORDERED: Bupivacaine 0.25% 10 ML SDV ONE (01:00)
[2022-07-15] MEDS: Ibuprofen 600 MG Tab PO PRN ×3 (02:18→17:58)
[2022-07-15] MEDS ORDERED: Prenatal Multivitamin with Calcium/Folic Acid/Iron Tab PO SCH (09:00)
[2022-07-15] MEDS: Acetaminophen 325 MG Tab PO PRN ×2 (14:46→19:40)
== END 2022-07-16 12:44 | disposition home or self-care (01) | DRG 560 ==
LOC: JD.OBCHECK 11:57 → JD.OB 14:17 → OBSVTOIN 22:53 → JD.OB 22:54
PROVIDERS: ADMIT Obstetrics & Gynecology; ATTEND Obstetrics & Gynecology
PROC: 10E0XZZ Delivery of Products of Conception, External Approach (ICD-10-PCS; principal; 2022-07-14)
PROC: 3E0R3BZ Introduction of Anesthetic Agent into Spinal Canal, Percutaneous Approach (ICD-10-PCS; 2022-07-14)
PROC: 00HU33Z Insertion of Infusion Device into Spinal Canal, Percutaneous Approach (ICD-10-PCS; 2022-07-14)
DX: O48.0 Post-term pregnancy (principal); Z3A.40 40 weeks gestation of pregnancy; Z37.0 Single live birth
CPT/HCPCS: 01967; 36415; 51701; 59025; 59409; 84112; 85025; 86592; A9270-GY; J2590; J3010; J3490; J7120